=== PATIENT | female | born 1945 | race Caucasian/White ===

== ENCOUNTER 2019-01-22 23:15 | Emergency (ER) | payer MEDICARE, BC ==
[2019-01-23] MEDS ORDERED: NORMAL SALINE 500 ML IV ONE (00:19)
--- NOTE | 2019-01-23 00:25 | ER Document Report ---
ED General - General Stated Complaint: BLEEDING IN COLOSTOMY BAG Time Seen by Provider: 01/22/19 23:39 Primary Care Provider: DOUG SANDOVAL MD [Primary Care Provider] - Follow up as needed - [facility] Notes: This is a 73-year-old female who presents today with a complaint of bleeding into her colostomy bag. Patient had hemicolectomy with fistula repair back in November at [place] secondary to a rectovaginal fistula. Patient states that she has been doing well until today when she first noticed it was a lot of air in her colostomy bag. After that, she noticed the stool was dark in color and filling up. The stools was initially dark and then she noted it was bloody. She denies any abdominal pain. She denies any weakness or dizziness. She gives a history of previous GI bleed. She denies anticoagulation use. - Related Data Allergies/Adverse Reactions: No Known Allergies Allergy (Verified 01/23/19 03:56) Past Medical History - Social History Smoking Status: Never Smoker Frequency of alcohol use: None Family History: Reviewed & Not Pertinent Review of Systems - Review of Systems Cardiovascular: denies: Chest pain, Palpitations Gastrointestinal: denies: Abdominal pain Neurological/Psychological: denies: Headaches -: Yes All other systems reviewed and negative Physical Exam - Vital signs Vitals: Temp 98.4 F 01/22/19 23:53 Interpretation: Other - Unremarkable vital signs - General General appearance: Appears well, Alert - Respiratory Respiratory status: No respiratory distress Chest status: Nontender Breath sounds: Normal Chest palpation: Normal - Cardiovascular Rhythm: Regular Heart sounds: Normal auscultation Murmur: No - Abdominal Inspection: Other - Patient has a colostomy. There is fecal content that appear s to be blood-tinged in the colostomy. We guaiaced it and it is heme positive. Pain medication Distension: No distension Bowel sounds: Normal Tenderness: Nontender Organomegaly: No organomegaly - Back Back: Normal, Nontender - Neurological Neuro grossly intact: Yes Cognition: Normal Orientation: AAOx4 Marion Coma Scale Eye Opening: Spontaneous [place] Coma Scale Verbal: Oriented Vadim Coma Scale Motor: Obeys Commands Vadim Coma Scale Total: 15 Speech: Normal Motor strength normal: LUE, RUE, LLE, RLE Sensory: Normal - Psychological Associated symptoms: Normal affect, Normal mood Course - Re-evaluation Re-evalutation: 01/23/19 00:26 Clinical picture is concerning for GI bleed. Will get a CT scan to rule out any active intra-abdominal bleeding given history of recent surgery. Will check basic labs. 01/23/19 03:10 EKG shows normal sinus rhythm at 60 bpm. Normal axis. Normal intervals normal EKG. Patient reevaluated. She still has a little bit of blood-tinged output in the colostomy. She is hemodynamically stable. Patient's care discussed with Dr. Alyssa Jacob at [facility]. Patient is accepted in transfer. - Vital Signs Vital signs: Temp Pulse Resp BP Pulse Ox 98.3 F 64 16 179/92 H 96 01/23/19 05:05 01/23/19 05:05 01/23/19 05:05 01/23/19 05:05 01/23/19 05:05 - Laboratory Result Diagrams: 01/23/19 00:09 01/23/19 00:09 Laboratory results interpreted by me: 01/23/19 01/23/19 00:09 00:09 RBC 5.41 H MCV 71 L MCH 22.6 L MCHC 31.8 L RDW 17.6 H Sodium 133.5 L Chloride 95 L Est GFR (MDRD) Non-Af 54 L Discharge - Discharge Clinical Impression: Lower GI bleed Condition: Stable Disposition: Tertiary-Other Referrals: DOUG SANDOVAL MD [Primary Care Provider] - Follow up as needed
[2019-01-23] MEDS ORDERED: PANTOPRAZOLE SODIUM 40 MG VIAL IV ONE (00:26)
[2019-01-23 00:46] LABS: ABSOLUTE BASOPHILS # (AUTO) 0.1 10^3/uL (0.0-0.2); ABSOLUTE EOSINOPHILS # (AUTO) 0.3 10^3/uL (0.0-0.6); ABSOLUTE LYMPHOCYTES (AUTO) 2.2 10^3/uL (0.5-4.7); ABSOLUTE MONOCYTES (AUTO) 0.6 10^3/uL (0.1-1.4); ABSOLUTE NEUT (AUTO) 3.5 10^3/uL (1.7-8.2); BASOPHILS % (AUTO) 1.1 % (0-2); EOSINOPHILS % (AUTO) 4.8 % (0-6); HEMATOCRIT 38.4 % (36.0-47.0); HEMOGLOBIN 12.2 g/dL (12.0-15.5); LYMPHOCYTES % (AUTO) 32.9 % (13-45); MEAN CORPUSCULAR HEMOGLOBIN 22.6 pg (27.0-33.4); MEAN CORPUSCULAR HGB CONC 31.8 g/dL (32.0-36.0); MEAN CORPUSCULAR VOLUME 71 fl (80-97); MONOCYTES % (AUTO) 9.4 % (3-13); PLATELET COUNT 323 10^3/uL (150-450); RED BLOOD COUNT 5.41 10^6/uL (3.72-5.28); RED CELL DISTRIBUTION WIDTH 17.6 % (11.5-14.0); SEGMENTED NEUTROPHILS % (AUTO) 51.8 % (42-78); TOTAL CELLS COUNTED % (AUTO) 100 %; WHITE BLOOD COUNT 6.7 10^3/uL (4.0-10.5)
[2019-01-23 00:51] LABS: INTERNATIONAL RATION (INR) 1.03; PROTHROMBIN TIME 13.5 SEC (11.4-15.4)
[2019-01-23 00:52] LABS: PARTIAL THROMBOPLASTIN TIME 31.3 SEC (23.5-35.8)
[2019-01-23 01:17] LABS: ALBUMIN 3.8 g/dL (3.5-5.0); ALKALINE PHOSPHATASE 90 U/L (38-126); ANION GAP 10 (5-19); ASPARTATE AMINO TRANSFERASE 26 U/L (14-36); BILIRUBIN,DIRECT 0.2 mg/dL (0.0-0.4); BILIRUBIN,TOTAL 0.3 mg/dL (0.2-1.3); BLOOD UREA NITROGEN 14 mg/dL (7-20); CALCIUM 9.6 mg/dL (8.4-10.2); CARBON DIOXIDE 29 mmol/L (22-30); CHLORIDE 95 mmol/L (98-107); GLUCOSE 97 mg/dL (75-110); POTASSIUM 4.3 mmol/L (3.6-5.0); TOTAL PROTEIN 6.8 g/dL (6.3-8.2)
--- NOTE | 2019-01-23 02:41 | RADIOLOGY REPORT (SQ) ---
EXAM DESCRIPTION: CT ABDOMEN PELVIS WITH IV CONTRAST COMPLETED DATE/TME: 01/23/2019 00:18 CLINICAL HISTORY: 73 years, Female, bleeding colostomy ? Acute bleeder/wound dehiscence COMPARISON: None. TECHNIQUE: [id number] Images stored on PACS. All CT scanners at this facility use dose modulation, iterative reconstruction, and/or weight based dosing when appropriate to reduce radiation dose to as low as reasonably achievable (ALARA). [facility]: Dose Right [facility]: CareDose [facility]: Dose Right [facility]: Teradose 4D [facility]: [employer] LIMITATIONS: None. FINDINGS: The lung bases are unremarkable. Osseous structures are grossly intact. Liver, spleen, adrenal glands, pancreas, kidneys are unremarkable. Status post cholecystectomy. No evidence for bowel obstruction. Left of midline ostomy noted. Minor inflammatory changes in the anterior peritoneal cavity near the ostomy site however no evidence for obstruction. No abnormal fluid collection. Right hip prosthesis with associated streak artifact. IMPRESSION: Minor inflammatory changes near the ostomy site. No evidence for bowel obstruction. No abnormal fluid collections. TECHNICAL DOCUMENTATION: Quality ID # [id number]: Final reports with documentation of one or more dose reduction techniques (e.g., Automated exposure control, adjustment of the mA and/or kV according to patient size, use of iterative reconstruction technique) copyright 2010 [employer]- All Rights Reserved
[2019-01-23] MEDS: NORMAL SALINE 1000 ML 1,000 ML IV ONE ×2 (03:50→04:24)
[2019-01-23 05:12] VITALS: BP 179/92
--- NOTE | 2019-01-23 07:31 | EKG REPORT ---
SEVERITY:- BORDERLINE ECG - INCOMPLETE ANALYSIS DUE TO MISSING DATA IN PRECORDIAL LEAD(S) SINUS RHYTHM BORDERLINE T ABNORMALITIES, ANT-LAT LEADS : Confirmed by: Torsten Hutchins MD 23-Jan-2019 07:30:46
== END 2019-01-23 05:33 | disposition short-term general hospital (02) ==
LOC: ER 23:15
DX: K92.2 Gastrointestinal hemorrhage, unspecified (principal); Z93.3 Colostomy status
CPT/HCPCS: 93005; 99285; 96361; 96374; 86900; 86901; 36415; 87045; 87205; 86850; 85025; 85610; 85730; 80053; 74177; 93010; C9113; J7040; J7030; S0164